=== PATIENT | female | born 1995 | race Caucasian/White ===

== ENCOUNTER → 2023-09-24 07:40 | Outpatient (REF) | payer OTHER, SELFPAY | LOC: PNTC 07:40 | PROVIDERS: ATTENDING PHYSICIAN Obstetrics & Gynecology | DX: Z36.0 Encounter for antenatal screening for chromosomal anomalies (principal); Z36.82 Encounter for antenatal screening for nuchal translucency | CPT/HCPCS: 76801; 76813 ==

== ENCOUNTER 2024-03-31 18:09 | Observation (INO) | payer OTHER, SELFPAY ==
[2024-03-31 18:22] VITALS: BP 127/87; BMI 37.4
== END 2024-03-31 19:30 | disposition home or self-care (01) ==
LOC: LDRP 18:09
PROVIDERS: ADMITTING PHYSICIAN Obstetrics & Gynecology; FAMILY PHYSICIAN Family Medicine
DX: O48.0 Post-term pregnancy (principal); Z3A.40 40 weeks gestation of pregnancy; O99.283 Endocrine, nutritional and metabolic diseases complicating pregnancy, third trimester; E03.9 Hypothyroidism, unspecified
CPT/HCPCS: 59025; 36415; 86850; 86900; 86901; G0378

== ENCOUNTER 2024-04-01 06:50 | Inpatient (IN) | payer OTHER, SELFPAY ==
[2024-04-01 06:59] VITALS: BP 139/87; BMI 37.4
[2024-04-01 07:50] LABS: % Basophils 0.2 % (0-2); % Eosinophils 0.2 % (0-6); % Immature Granulocytes 0.7 % (0-0.5); % Lymphocytes 9.6 % (20.5-51.1); % Monocytes 5.6 % (1.7-9.3); % Neutrophils 83.7 % (42.2-75.2); Absolute Immature Granulocytes 0.1 10^3/uL (0-0.05); Absolute Monocytes 0.6 10^3/uL (0.1-0.6); Hematocrit 34.1 % (37.0-47.0); Hemoglobin 11.7 g/dL (12.0-16.0); Mean Corp Hgb Conc. 34.3 g/dL (33.0-37.0); Mean Corpuscular Hgb 29.4 pg (27.0-31.0); Mean Corpuscular Volume 85.7 fL (81.0-99.0); Mean Platelet Volume 11.1 fL (7.4-10.4); Nucleated Red Blood Cells % 0 %; Platelet Count 213 10^3/uL (130-400); Red Blood Cell Count 3.98 10^6/uL (4.20-5.40); Red Cell Dist. Width 13.7 % (11.5-14.5); White Blood Cell Count 10.8 10^3/uL (4.8-10.8)
[2024-04-01] MEDS: FENTANYL/BUPIVACAINE 100 EPIDURAL ×2 (09:05→16:43)
[2024-04-01] MEDS: SUBLIMAZE 100 MCG EPIDURAL (09:05)
[2024-04-01] MEDS: PITOCIN 30 UNITS/NSS 500 ML IV (10:54)
[2024-04-01] MEDS: LR 1000 IV ×2 (10:54→18:48)
[2024-04-01] MEDS: MOTRIN 600 MG PO (23:55)
[2024-04-02 05:33] LABS: Hematocrit 29.7 % (37.0-47.0); Hemoglobin 10.3 g/dL (12.0-16.0)
[2024-04-02] MEDS: SYNTHROID 25 MCG PO (06:34)
[2024-04-02] MEDS: SENOKOT-S 1 TABLET PO (08:03)
[2024-04-02] MEDS: MOTRIN 600 MG PO ×3 (08:03→21:06)
[2024-04-02] MEDS: PRENATAL PLUS 1 TABLET PO (08:03)
[2024-04-02] MEDS: FEOSOL 325 MG PO (08:03)
[2024-04-03] MEDS: MOTRIN 600 MG PO ×2 (03:50→10:28)
[2024-04-03] MEDS: SYNTHROID 25 MCG PO (06:09)
[2024-04-03] MEDS: PRENATAL PLUS 1 TABLET PO (08:15)
[2024-04-03] MEDS: SENOKOT-S 1 TABLET PO (08:15)
[2024-04-03] MEDS: FEOSOL 325 MG PO (08:15)
[2024-04-03 11:54] LABS: Syphilis/T. pallidum Ab Reflex Negative (Negative)
== END 2024-04-03 14:54 | disposition home or self-care (01) | DRG 807 ==
LOC: LDRP 06:50
PROVIDERS: ADMITTING PHYSICIAN Obstetrics & Gynecology; ATTENDING PHYSICIAN Obstetrics & Gynecology
PROC: 10907ZC Drainage of Amniotic Fluid, Therapeutic from Products of Conception, Via Natural or Artificial Opening (ICD-10-PCS; 2024-04-01)
PROC: 0KQM0ZZ Repair Perineum Muscle, Open Approach (ICD-10-PCS; 2024-04-01)
PROC: 4A1HXCZ Monitoring of Products of Conception, Cardiac Rate, External Approach (ICD-10-PCS; 2024-04-01)
PROC: 10E0XZZ Delivery of Products of Conception, External Approach (ICD-10-PCS; 2024-04-01)
PROC: 3E0234Z Introduction of Serum, Toxoid and Vaccine into Muscle, Percutaneous Approach (ICD-10-PCS; 2024-04-03)
DX: O48.0 Post-term pregnancy (principal); Z37.0 Single live birth; O70.1 Second degree perineal laceration during delivery; O69.81X0 Labor and delivery complicated by cord around neck, without compression, not applicable or unspecified; O76 Abnormality in fetal heart rate and rhythm complicating labor and delivery; O99.283 Endocrine, nutritional and metabolic diseases complicating pregnancy, third trimester; E03.9 Hypothyroidism, unspecified; Z3A.40 40 weeks gestation of pregnancy; Z79.890 Hormone replacement therapy; Z23 Encounter for immunization
CPT/HCPCS: 85014; 85018; 85025; 86780; 86850; 86900; 86901